=== PATIENT | male | born 1975 | race Caucasian/White ===

== ENCOUNTER 2018-05-07 15:30 | Emergency (ER) | payer OTHER ==
[~2018-05-07] VITALS: Ht 185.4 cm; Wt 99.8 kg
[~2018-05-07 15:30] MED LIST: IMITREX 50 MG T50 MG PO; TORADOL 10 MG T10 MG PO
[2018-05-07] MEDS ORDERED: NOHOMEMEDICATIONS (15:38)
[2018-05-07 16:02] LABS: INFLUENZA A ANTIGEN None Detected (None Detect); INFLUENZA B ANTIGEN None Detected (None Detect)
[2018-05-07] MEDS ORDERED: VENTOLIN HFA 1818 GM INH (16:14)
[2018-05-07] MEDS ORDERED: AUGMENTIN 500-1 EACH PO (16:14)
[2018-05-07] MEDS ORDERED: PREDNISONE 20 M20 M1 PO (16:14)
[2018-05-07 16:46] VITALS: BP 129/81
== END 2018-05-07 16:46 | disposition home or self-care (01) ==
LOC: M.ERS 15:30
PROVIDERS: Nurse Practitioner Family
DX: J20.9 Acute bronchitis, unspecified (principal); F17.200 Nicotine dependence, unspecified, uncomplicated

== ENCOUNTER 2019-03-26 19:04 | Emergency (ER) | payer OTHER ==
[~2019-03-26] VITALS: Ht 185.4 cm; Wt 104.3 kg
[~2019-03-26 19:04] MED LIST changes: +AUGMENTIN 500-1 EACH PO; +NOHOMEMEDICATIONS; +PREDNISONE 20 M20 M1 PO; +VENTOLIN HFA 1818 GM INH
[2019-03-26 20:59] LABS: INFLUENZA A ANTIGEN Negative (Negative); INFLUENZA B ANTIGEN Negative (Negative)
[2019-03-26] MEDS ORDERED: PREDNISONE 20 M20 M1 PO (21:02)
[2019-03-26] MEDS ORDERED: ZPAK PO (21:02)
[2019-03-26 21:10] VITALS: BP 129/66
== END 2019-03-26 21:11 | disposition home or self-care (01) ==
LOC: M.ERS 19:04
PROVIDERS: Physician Assistant
DX: J40 Bronchitis, not specified as acute or chronic (principal)